=== PATIENT | female | born 1970 | race Caucasian/White ===

== ENCOUNTER 2017-09-20 13:43 | Outpatient (CLI) | payer BC ==
--- NOTE | 2017-09-20 15:48 | MRI ---
MRI LUMBAR SPINE 09/20/17 HISTORY: Bilateral leg pain for months. Multiplanar and multisequence noncontrast enhanced MRI images of the lumbar spine obtained. RADIOGRAPHIC FINDINGS: For the purposes of this dictation, the last freely mobile vertebral body will be considered to be th e L5 vertebral body. All other vertebral bodies are numbered according to this. The abdominal aorta is unremarkable. No evidence of periaortic lymphadenopathy seen. For the purposes of this dictation, the last freely mobile vertebral body will be considered to be th e L5 vertebral body. T12-L1, L1-2: Unremarkable. L2-3: There is some mild disc desiccation. No significant degree of central stenosis seen. Minimal bi lateral facet hypertrophy is seen. L3-4: There is mild facet hypertrophy. No significant degree of central or neural foraminal narrowing is seen. L4-5: There is moderate bilateral facet and ligamentum flavum hypertrophy. This results in mild but n ot significant central and neural foraminal narrowing. L5-S1: Mild facet hypertrophy is seen. Bilateral L4-5 and L5-S1 facet hypertrophy. IMPRESSION: Bilateral L4-5 and L5-S1 facet hypertrophy. No other significant abnormality seen. POS: OFF
== END 2017-09-20 13:44 | disposition home or self-care (01) ==
LOC: SCSMRI 13:43
PROVIDERS: ATTEND Internal Medicine Rheumatology
DX: M43.16 Spondylolisthesis, lumbar region (principal)
CPT/HCPCS: 72148

== ENCOUNTER 2017-11-02 10:50 | Outpatient (CLI) | payer BC | END 2017-11-02 10:51 | disposition home or self-care (01) | LOC: BICMAMMO 10:50 | PROVIDERS: ATTEND Obstetrics & Gynecology | DX: Z12.31 Encounter for screening mammogram for malignant neoplasm of breast (principal) | CPT/HCPCS: 77063; 77067 ==

== ENCOUNTER 2017-12-20 14:05 | Outpatient (CLI) | payer OTHER | END 2017-12-20 14:06 | disposition home or self-care (01) | LOC: DTY/OP 14:05 | PROVIDERS: ATTEND Specialist | DX: Z01.818 Encounter for other preprocedural examination (principal); E66.01 Morbid (severe) obesity due to excess calories | CPT/HCPCS: 97802 ==

== ENCOUNTER 2018-01-27 12:54 | Outpatient (CLI) | payer BC ==
--- NOTE | 2018-01-27 14:08 | MRI ---
CERVICAL SPINE MRI NONCONTRAST: History Cervical spine stenosis with neck and bilateral upper extremity pain. FINDINGS: Straightening of normal cervical curvature is present. There is no compression deformity or signific ant subluxation. No evidence of acute marrow edema. Cervical spinal cord demonstrates appropriate c aliber and signal without evidence of intrinsic expansile process. No obvious focal cord signal abno rmality identified, although there is limitation due to patient motion. There is no C1-2 level central canal stenosis. C2-3: There is disk-osteophyte effacing the inferior thecal sac with mild narrowing of the central c anal. No high-grade foraminal stenosis. C3-4: No high-grade central canal or neural foraminal stenosis. C4-5: Disk-osteophyte ridge is present with mild left and moderate right neural foraminal narrowing. There is an inferior C4 end plate Schmorl's node. C5-6: Slight right asymmetric disk osteophyte without high-grade central or foraminal stenosis. C6-7: No high-grade central canal or neural foraminal stenosis. C7-T1: No high-grade central canal or neural foraminal stenosis. IMPRESSION: Multilevel degenerative change of the cervical spine as outlined above. This does result in a modera te degree of right foraminal stenosis at the C4-5 level with resultant crowding of the right C5 nerve root. POS: KHUSHBU
== END 2018-01-27 12:55 | disposition home or self-care (01) ==
LOC: TBSIIMAG 12:54
PROVIDERS: ATTEND Anesthesiology Pain Medicine
DX: M48.02 Spinal stenosis, cervical region (principal); M47.892 Other spondylosis, cervical region
CPT/HCPCS: 72141

== ENCOUNTER 2018-02-08 12:00 | Inpatient (IN) | payer BC ==
[2018-04-06 10:48] VITALS: BMI 46.7
[2018-04-11] MEDS ORDERED: Bupivacaine/Epinephrine 0.25% 30 ML VIAL ONE ×2 (06:29→07:27)
[2018-04-11] MEDS ORDERED: Ketorolac Tromethamine 30 MG/ML VIAL ONE (06:49)
[2018-04-11] MEDS ORDERED: Sodium Chloride 0.9% 100 ML ONE (06:49)
[2018-04-11] MEDS ORDERED: Scopolamine 1.5 mg/72 hour Patch ONE (06:49)
[2018-04-11] MEDS ORDERED: Heparin 5,000 UNITS/ML VIAL ONE (06:49)
[2018-04-11] MEDS ORDERED: cefOXitin 2 GM VIAL ONE (06:49)
[2018-04-11 06:50] LABS: Anion Gap 14 mmol/L (10-20); BUN (Urea Nitrogen) 21 mg/dL (7.0-18.7); Calc. Creatinine Clearance 162 mL/min (70-130); Calcium 10.9 mg/dL (7.8-10.44); Carbon Dioxide 34 mmol/L (22-29); Chloride 96 mmol/L (98-107); Estimated GFR-MDRD 74; Glucose 114 mg/dL (70-105); Potassium 3.1 mmol/L (3.5-5.1); Sodium 141 mmol/L (136-145)
[2018-04-11] MEDS ORDERED: Fentanyl 250 MCG/5 ML VIAL ONE (07:11)
[2018-04-11] MEDS ORDERED: Midazolam HCl 2 mg/2 ml Vial ONE (07:23)
[2018-04-11] MEDS ORDERED: Ondansetron HCl/PF 4 MG/2 ML Vial ONE ×2 (07:32→12:56)
[2018-04-11] MEDS ORDERED: Succinylcholine Chloride 20 MG/ML 10 ml SYRINGE FS ONE ×2 (07:32→12:56)
[2018-04-11] MEDS ORDERED: Promethazine HCl 25 MG/ML VIAL SLOW IVP PRN (09:16)
[2018-04-11] MEDS ORDERED: Promethazine HCl 25 MG/ML VIAL IM PRN ×2 (09:16→10:47)
[2018-04-11] MEDS ORDERED: Ondansetron HCl/PF 4 MG/2 ML Vial IVP PRN ×2 (09:16→10:47)
[2018-04-11] MEDS ORDERED: Morphine Sulfate 2 MG/ML SYRINGE SLOW IVP PRN (09:16)
[2018-04-11] MEDS ORDERED: SUGAMMADEX SODIUM 200 MG/2 ML VIAL ONE (09:31)
[2018-04-11] MEDS ORDERED: SUGAMMADEX SODIUM 500 MG/5 ML VIAL ONE (09:31)
[2018-04-11] MEDS ORDERED: Fentanyl 100 MCG/2 ML VIAL ONE ×3 (10:00→10:49)
--- NOTE | 2018-04-11 10:39 | OP ---
DATE OF PROCEDURE: 04/11/2018 PREOPERATIVE DIAGNOSIS: Morbid obesity. POSTOPERATIVE DIAGNOSIS: Morbid obesity. OPERATION PERFORMED: Laparoscopic vertical sleeve gastrectomy using ViSiGi device. SURGEON: Sumit Boothe M.D. ANESTHESIA: General endotracheal per Georgia Stewart CRNA. INDICATIONS: The patient is a 47-year-old morbidly obese white female. She presents for a sleeve ga strectomy having completed preoperative education and evaluation. DESCRIPTION OF OPERATION: Informed consent was obtained. The patient was taken to the operating pj m where general endotracheal anesthesia obtained with the patient in supine position. Abdomen was pr epped with ChloraPrep and draped in sterile fashion. Local anesthetic was infiltrated and 5 mm supra umbilical incision was created through which Veress needle was passed to the peritoneal cavity and pn eumoperitoneum established using carbon dioxide up to a pressure of 15 mmHg. A 5 mm trocar port was passed through this same incision. Laparoscopic camera was passed through this port. Under direct v ision, 4 additional ports were placed including bilateral 5 mm subcostal ports, a 12 mm right paramed supa port and a 15 mm left paramedian port. A 5 mm epigastric incision was created through which Eva ansen retractor was passed into the abdominal cavity and used to retract the left lobe of the liver. The patient was placed into reverse Trendelenburg position. The ViSiGi device was advanced within the stomach and used to decompress this. The pylorus was ident ified and beginning 4 cm proximal to the pylorus, the omentum and vascular tissue along the greater c urvature was divided using the LigaSure in an ascending fashion up to the angle of His. All posterio r adhesions were mobilized. The short gastric vessels were carefully divided and then hemostasis was maintained using the LigaSure. Once this was completely mobilized, the ViSiGi was carefully positio surjit at the level of the pylorus and placed to suction, which was clearly defining the lesser curvatur e of the stomach. The gastrectomy was then performed using a series of fires of the [place] stapler using a green load followed by a gold load and a series of blue loads until completion of the gastrectomy. The ViSiGi a long the lesser curvature was used as a size 36 bougie to guide in the gastric division. Care was ta tejas to avoid narrowing the incisura or the gastroesophageal junction. The integrity of the staple li ne was then assessed by insufflating gas through the ViSiGi while irrigating along the staple line. There was no evidence of an air leak. There was no evidence of bleeding along the staple line. The resected stomach was then removed through the 15 mm port and the fascia was closed with 0 Vicryl sutu re using a GraNee needle. I then closed the 12 mm port also using the GraNee needle and 0 Vicryl sut ure. The Nathansen retractor was removed. All ports and instruments were removed under direct visio n. All irrigant was aspirated. Pneumoperitoneum was carefully evacuated. Quarter percent Marcaine with epinephrine was infiltrated into each port site. Skin edges approximated with 4-0 Monocryl subc uticular suture. Dermabond was placed externally. There were no complications. The patient tolerat ed the procedure well and was taken to recovery room in stable condition. FINDINGS: She had some omental adhesions to the anterior abdominal wall in the left upper abdomen. Otherwise, her anatomy appeared to be within normal limits. She had no evidence of fatty liver. The re was essentially no blood loss during the operation. There were no complications. Procedure was u neventful. She tolerated well and was taken to recovery room in stable condition.
[2018-04-11] MEDS ORDERED: hydrALAZINE 20 MG/ML VIAL SLOW IVP PRN (10:47)
[2018-04-11] MEDS ORDERED: Hydrocodone-Acetamin 15 ML UDCUP PO PRN (10:47)
[2018-04-11] MEDS ORDERED: Dextrose 5% in Water 1,000 ML IV PRN (10:47)
[2018-04-11] MEDS ORDERED: diphenhydrAMINE 50 MG/ML VIAL IVP PRN (10:47)
[2018-04-11] MEDS ORDERED: Dextrose 50% Abboject 50 ML SYRINGE SLOW IVP PRN (10:47)
[2018-04-11] MEDS: D5 1/2 NS w/20 mEq KCL 1,000 ML IV SCH ×2 (11:53→20:20)
[2018-04-11] MEDS: Acetaminophen 1,000 MG in Premix Bag 1 BAG IVPB SCH ×3 (11:54→23:38)
[2018-04-11] MEDS: Ketorolac Tromethamine 30 MG/ML VIAL IVP SCH ×3 (11:55→23:38)
[2018-04-11] MEDS ORDERED: Dexamethasone 20 MG/5 ML VIAL ONE (12:56)
[2018-04-11] MEDS ORDERED: Glycopyrrolate 0.2 MG/ML 5 ML SYRINGE ONE (12:56)
[2018-04-11] MEDS ORDERED: PROPOFOL 200 MG/20 ML VIAL ONE (12:56)
[2018-04-11] MEDS ORDERED: Lidocaine 1% PF 5 ML VIAL ONE (12:56)
[2018-04-11] MEDS ORDERED: Enoxaparin Sodium 40 MG/0.4 ML SYRINGE SC SCH (21:00)
[2018-04-12] MEDS: D5 1/2 NS w/20 mEq KCL 1,000 ML IV SCH ×2 (04:42→08:44)
[2018-04-12 05:51] LABS: #Lymphocytes 2.4 thou/uL (1.20-3.40); #Neutrophils 9.6 thou/uL (1.40-6.50); %Basophils 0.1 % (0.0-1.0); %Eosinophils 0.3 % (0.0-10.0); %Lymphocytes 18.2 % (21.0-51.0); %Monocytes 7.4 % (0.0-10.0); %Neutrophils 74.1 % (42.0-75.0); Hemoglobin 12.3 g/dL (12.0-16.0); Mean Corpuscular HGB CONC 34.5 g/dL (32.0-36.0); Mean Corpuscular Hemoglobin 30.5 pg (27.0-31.0); Mean Corpuscular Volume 88.4 fL (78.0-98.0); Mean Platelet Volume 8.3 fL (7.4-10.4); Platelet Count 236 thou/uL (130-400); RBC Distribution Width 12.9 % (11.5-14.5); Red Blood Cell (RBC) Count 4.04 mill/uL (4.20-5.40); White Blood Cell (WBC) Count 12.9 thou/uL (4.8-10.8)
[2018-04-12] MEDS: Acetaminophen 1,000 MG in Premix Bag 1 BAG IVPB SCH (05:59)
[2018-04-12] MEDS: Ketorolac Tromethamine 30 MG/ML VIAL IVP SCH ×2 (05:59→12:30)
[2018-04-12 06:41] LABS: Anion Gap 9 mmol/L (10-20); BUN (Urea Nitrogen) 11 mg/dL (7.0-18.7); Calc. Creatinine Clearance 182 mL/min (70-130); Calcium 8.8 mg/dL (7.8-10.44); Carbon Dioxide 31 mmol/L (22-29); Chloride 98 mmol/L (98-107); Estimated GFR-MDRD 85; Glucose 119 mg/dL (70-105); Potassium 3.2 mmol/L (3.5-5.1); Sodium 135 mmol/L (136-145)
[2018-04-12] MEDS ORDERED: Pantoprazole 40 MG VIAL IVP SCH (09:00)
[2018-04-12 11:31] VITALS: BP 129/83; TEMP 98.6
== END 2018-04-12 14:24 | disposition home or self-care (01) | DRG 621 ==
LOC: SURG A 04-11 06:07 → SURG B 04-11 11:26
PROVIDERS: ADMIT Specialist; ATTEND Specialist
PROC: 0DB64Z3 Excision of Stomach, Percutaneous Endoscopic Approach, Vertical (ICD-10-PCS; principal; 2018-04-11)
DX: E66.01 Morbid (severe) obesity due to excess calories (principal); G47.33 Obstructive sleep apnea (adult) (pediatric); M79.7 Fibromyalgia; M54.5 Low back pain; M54.2 Cervicalgia; F41.9 Anxiety disorder, unspecified; I10 Essential (primary) hypertension; E78.5 Hyperlipidemia, unspecified; Z68.42 Body mass index [BMI] 45.0-49.9, adult; Z87.39 Personal history of other diseases of the musculoskeletal system and connective tissue; Z87.42 Personal history of other diseases of the female genital tract; Z87.898 Personal history of other specified conditions; Z82.49 Family history of ischemic heart disease and other diseases of the circulatory system; Z82.3 Family history of stroke; Z98.51 Tubal ligation status; Z79.899 Other long term (current) drug therapy
CPT/HCPCS: 36415; 80048; 85025; 88307; 88312; C9113; J0131; J0694; J1644; J1650; J1885; J2250; J2405; J3010; J7050

== ENCOUNTER 2018-04-06 10:15 | Outpatient (CLI) | payer BC | END 2018-04-06 10:16 | disposition home or self-care (01) | LOC: LABBT 10:15 | PROVIDERS: ATTEND Specialist | DX: Z01.818 Encounter for other preprocedural examination (principal); E66.01 Morbid (severe) obesity due to excess calories | CPT/HCPCS: 93005; 93010 ==

== ENCOUNTER 2018-05-10 19:45 | Emergency (ER) | payer BC ==
[2018-05-10 20:27] LABS: #Basophils 0.1 thou/uL (0.0-0.2); #Eosinphils 0.3 thou/uL (0.0-0.7); #Lymphocytes 2.5 thou/uL (1.20-3.40); #Monocytes 0.7 thou/uL (0.11-0.59); #Neutrophils 6.8 thou/uL (1.40-6.50); %Basophils 1.1 % (0.0-1.0); %Eosinophils 2.7 % (0.0-10.0); %Monocytes 6.7 % (0.0-10.0); %Neutrophils 65.5 % (42.0-75.0); Hemoglobin 14.3 g/dL (12.0-16.0); Mean Corpuscular HGB CONC 33.5 g/dL (32.0-36.0); Mean Corpuscular Hemoglobin 30.1 pg (27.0-31.0); Mean Corpuscular Volume 89.8 fL (78.0-98.0); Mean Platelet Volume 9.2 fL (7.4-10.4); Platelet Count 216 thou/uL (130-400); RBC Distribution Width 12.9 % (11.5-14.5); Red Blood Cell (RBC) Count 4.76 mill/uL (4.20-5.40); White Blood Cell (WBC) Count 10.4 thou/uL (4.8-10.8)
[2018-05-10 20:43] LABS: ALT (SGPT) 12 U/L (8-55); AST (SGOT) 15 U/L (5-34); Albumin 4.6 g/dL (3.5-5.0); Alkaline Phosphatase 84 U/L (40-150); Anion Gap 12 mmol/L (10-20); BUN (Urea Nitrogen) 16 mg/dL (7.0-18.7); Bilirubin, Total 0.4 mg/dL (0.2-1.2); Calc. Creatinine Clearance 0 mL/min (70-130); Carbon Dioxide 32 mmol/L (22-29); Chloride 100 mmol/L (98-107); Estimated GFR-MDRD 75; Globulin 2.9 g/dL (2.4-3.5); Glucose 88 mg/dL (70-105); Lipase 26 U/L (8-78); Potassium 3.6 mmol/L (3.5-5.1); Protein, Total 7.5 g/dL (6.0-8.3); Sodium 140 mmol/L (136-145)
== END 2018-05-10 22:48 | disposition left against medical advice (07) ==
LOC: ERS 19:45
DX: Z53.21 Procedure and treatment not carried out due to patient leaving prior to being seen by health care provider (principal)
CPT/HCPCS: 36415; 80053; 83690; 85025

== ENCOUNTER 2019-01-09 07:42 | Outpatient (CLI) | payer BC ==
--- NOTE | 2019-01-09 10:19 | MRI ---
MRI CERVICAL SPINE: 01/09/2019 HISTORY: Cervical spondylosis. Neck pain, radiating down right shoulder and right arm. COMPARISON: 01/27/2018 TECHNIQUE: Multiplanar, multisequence MR imaging of the cervical spine is provided without contrast. FINDINGS: The sagittal STIR imaging demonstrates mild edematous change involving the inferior endplate of the C 4 vertebral body, associated with a stable Schmorl's node. Benign hemangioma noted at T2. There is no anterolisthesis or retrolisthesis within the cervical spine. No prevertebral soft tissue abnormality. Craniocervical junction and atlantoaxial interspace appears within normal limits. C2-C3: No significant central canal or neural foraminal stenosis. C3-C4: No significant central canal or neural foraminal stenosis. C4-C5: Disk space narrowing and disk desiccation noted. Minimal disk bulge with no central canal st enosis. Bilateral facet and uncovertebral osteophyte formation, right greater than left. Moderate s table right neural foraminal stenosis. No significant left neural foraminal stenosis. C5-C6: Disk desiccation and minimal disk bulge with partial effacement of the ventral thecal sac. N o significant central canal stenosis or interval change. Mild bilateral uncovertebral osteophyte for mation, right greater than left. No significant neural foraminal stenosis. C6-C7: There is minimal disk bulge with no significant central canal or neural foraminal stenosis. C7-T1: No significant central canal or neural foraminal stenosis. No focal area of abnormal signal intensity is identified within the cervical cord. IMPRESSION: Degenerative change within the cervical spine, as detailed above. POS: KHUSHBU
== END 2019-01-09 07:43 | disposition home or self-care (01) ==
LOC: BICMRI 07:42
PROVIDERS: ATTEND Anesthesiology Pain Medicine
DX: M47.812 Spondylosis without myelopathy or radiculopathy, cervical region (principal)
CPT/HCPCS: 72141

== ENCOUNTER 2019-02-08 20:30 | Outpatient (CLI) | payer BC | END 2019-02-08 20:31 | disposition home or self-care (01) | LOC: SLEEPLAB 20:30 | PROVIDERS: ATTEND Internal Medicine Pulmonary Disease | DX: G47.33 Obstructive sleep apnea (adult) (pediatric) (principal); M79.7 Fibromyalgia; R06.83 Snoring; G47.00 Insomnia, unspecified; G47.10 Hypersomnia, unspecified; I10 Essential (primary) hypertension; G47.61 Periodic limb movement disorder; Z98.84 Bariatric surgery status | CPT/HCPCS: 95806 ==

== ENCOUNTER 2019-02-28 11:20 | Outpatient (CLI) | payer BC ==
--- NOTE | 2019-02-28 11:46 | MMO ---
Bilateral MAMMO Bilat Screen [facility]. CLINICAL HISTORY: Patient is 48 years old and is seen for screening. The patient has no family history of breast cancer. The patient has no personal history of cancer. VIEWS: The views performed were: bilateral craniocaudal with tomosynthesis and bilateral mediolateral oblique with tomosynthesis. FILMS COMPARED: The present examination has been compared to prior imaging studies performed at [facility] on 08/01/2013, 10/03/2014, 10/13/2015, 11/02/2016 and 11/02/2017. MAMMOGRAM FINDINGS: There are scattered fibroglandular densities. There are no suspicious masses, suspicious calcifications, or new areas of architectural distortion. IMPRESSION: THERE IS NO MAMMOGRAPHIC EVIDENCE OF MALIGNANCY. A ROUTINE FOLLOW-UP MAMMOGRAM IN 1 YEAR IS RECOMMENDED. THE RESULTS OF THIS EXAM WERE SENT TO THE PATIENT. ACR BI-RADS Category 1 - Negative MAMMOGRAPHY NOTE: 1. A negative mammogram report should not delay a biopsy if a dominant of clinically suspicious mass is present. 2. Approximately 10% to 15% of breast cancers are not detected by mammography. 3. Adenosis and dense breasts may obscure an underlying neoplasm.
== END 2019-02-28 11:21 | disposition home or self-care (01) ==
LOC: BICMAMMO 11:20
PROVIDERS: ATTEND Obstetrics & Gynecology
DX: Z12.31 Encounter for screening mammogram for malignant neoplasm of breast (principal)
CPT/HCPCS: 77063; 77067

== ENCOUNTER 2019-04-02 19:30 | Outpatient (CLI) | payer BC | END 2019-04-02 19:31 | disposition home or self-care (01) | LOC: SLEEPLAB 19:30 | PROVIDERS: ATTEND Internal Medicine Pulmonary Disease | DX: G47.33 Obstructive sleep apnea (adult) (pediatric) (principal); R06.83 Snoring; G47.10 Hypersomnia, unspecified; R63.4 Abnormal weight loss; E66.9 Obesity, unspecified; Z68.33 Body mass index [BMI] 33.0-33.9, adult | CPT/HCPCS: 95811 ==

== ENCOUNTER 2020-07-23 13:06 | Inpatient (IN) | payer BC, OTHER ==
[2020-07-23] MEDS ORDERED: Acetaminophen 500 MG TAB ONE (13:28)
[2020-07-23] MEDS ORDERED: diphenhydrAMINE 50 MG/ML VIAL ONE (13:53)
[2020-07-23] MEDS ORDERED: diphenhydrAMINE 25 MG CAP ONE (13:53)
[2020-07-23] MEDS ORDERED: Ketorolac Tromethamine 30 MG/ML VIAL ONE (13:53)
[2020-07-23] MEDS ORDERED: Metoclopramide 10 MG/10 ML UDCUP ONE (13:53)
[2020-07-23] MEDS ORDERED: Metoclopramide HCl 10 MG/2 ML VIAL ONE (13:53)
--- NOTE | 2020-07-23 13:57 | RAD ---
PORTABLE CHEST 1 VIEW: Date: 07/23/2020 Time: 1344 hours HISTORY: Fever, cough. FINDINGS/IMPRESSION: Comparison made with exam of 07/21/2020. The heart size is normal. There is suggestion of mild infiltrate in the left lung base/retrocardiac r egion. The possibility of pneumonia should be considered. POS: AH
[2020-07-23 14:13] LABS: Hemoglobin 13.6 g/dL (12.0-16.0); Mean Corpuscular HGB CONC 33.5 g/dL (32.0-36.0); Mean Corpuscular Hemoglobin 30.6 pg (27.0-31.0); Mean Corpuscular Volume 91.6 fL (78.0-98.0); Mean Platelet Volume 9.4 fL (7.4-10.4); Platelet Count 184 thou/uL (130-400); RBC Distribution Width 12.5 % (11.5-14.5); Red Blood Cell (RBC) Count 4.43 mill/uL (4.20-5.40); White Blood Cell (WBC) Count 9.5 thou/uL (4.8-10.8)
[2020-07-23 14:26] LABS: ALT (SGPT) 48 U/L (8-55); AST (SGOT) 66 U/L (5-34); Albumin 3.6 g/dL (3.5-5.0); Alkaline Phosphatase 101 U/L (40-110); Anion Gap 13 mmol/L (10-20); BUN (Urea Nitrogen) 15 mg/dL (9.8-20.1); Bilirubin, Total 0.2 mg/dL (0.2-1.2); Calc. Creatinine Clearance 0 mL/min (70-130); Calcium 8.8 mg/dL (7.8-10.44); Carbon Dioxide 26 mmol/L (22-29); Chloride 103 mmol/L (98-107); Estimated GFR-MDRD 79; Globulin 2.9 g/dL (2.4-3.5); Glucose 100 mg/dL (70-105); Protein, Total 6.5 g/dL (6.0-8.3); Sodium 138 mmol/L (136-145)
[2020-07-23 14:27] LABS: Bilirubin Negative (Negative); Blood, Urine Trace (Negative); Clarity Turbid (Clear); Glucose, Urine (Dipstick) Normal (Negative); Ketone, Urine Trace mg/dL (Negative); Leukocyte 250 Leu/uL (Negative); Mucous/LPF Rare LPF (<2+); Nitrite Negative (Negative); Protein, Urine (Dipstick) 300 mg/dL (Neg-Trace); Specific Gravity, Urine 1.035 (1.002-1.036); Urobilinogen Normal mg/dL (Less than 2)
--- NOTE | 2020-07-23 14:29 | CT ---
CT BRAIN WITHOUT CONTRAST: Date: 07/23/2020 HISTORY: Headache. Trauma to head. Nausea. COMPARISON: None. FINDINGS: No evidence of acute infarct, hemorrhage, midline shift, or abnormal extra-axial fluid collections ar e seen. The bony calvarium is intact. The visualized paranasal sinuses are well aerated. IMPRESSION: No CT evidence of acute intracranial process. POS: AH
[2020-07-23 14:32] LABS: Bacteria/HPF 1+ HPF (None Seen); Pregnancy Test - Urine (BHCG) Negative (Negative); Pregu Control Background? CLEAR/WHITE (CLR/WHITE); Pregu Control Bar Appear? YES (CONTROL BAR); Specific Gravity 1.035 (1.002-1.036)
[2020-07-23 14:36] LABS: Band 16 % (5-11); Lymphocytes 16 % (21-51); MDiff Complete? YES; Monocytes 4 % (0-10); Neutrophil 61 % (42-75); Platelet Morphology Comment Appears Adequate; RBC Morphology Normal; Reactive Lymphocytes 2 % (0-10)
[2020-07-23] MEDS ORDERED: cefTRIAXone\\ROCEPHIN 2 GM VIAL ONE (15:01)
[2020-07-23] MEDS ORDERED: Ondansetron PF 4 MG/2 ML Vial IVP PRN (15:27)
[2020-07-23] MEDS ORDERED: Azithromycin 500 MG VIAL ONE (15:41)
[2020-07-23 16:30] LABS: SARS-CoV-2 NAA Rapid Test Not Detected (NotDetected)
[2020-07-23] MEDS: Sodium Chloride 0.9% 1,000 ML IV SCH (18:25)
[2020-07-23] MEDS ORDERED: Ondansetron PF 4 MG/2 ML Vial ONE (22:04)
[2020-07-23] MEDS ORDERED: Acetaminophen 325 MG TAB ONE (22:04)
[2020-07-23 23:08] VITALS: BMI 30.7
[2020-07-23] MEDS: Azithromycin 500 MG in Sodium Chloride 0.9% 250 ML 250 ML IVPB SCH (23:11)
[2020-07-23] MEDS: cefTRIAXone\\ROCEPHIN 1 GM in Sodium Chloride 0.9% 100 ML IVPB SCH (23:11)
--- NOTE | 2020-07-23 23:13 | HP ---
CHIEF COMPLAINT: Shortness of breath. HISTORY OF PRESENT ILLNESS: The patient is a 49-year-old female with past medical history of hypertension who presented to the ER with complaints of fever, cough, and body aches for the past two days. The patient stated that her symptoms started Tuesday night with fevers and chills and progressed to nonproductive cough and generalized body pains over the next couple of days. She felt dizzy on Tuesday while taking a shower and briefly lost consciousness. The patient denies any chest pain, palpitations, nausea, vomiting, or change in her bowel habits. She was tested for COVID-19 a couple of days ago and her test was reportedly negative. In the ER, the patient was found to be febrile, and her chest x-ray revealed left lung base opacities. Her influenza screen has been negative and a repeat COVID-19 test was ordered. REVIEW OF SYSTEMS: Negative, except as noted in HPI. PAST MEDICAL HISTORY: Hypertension. PAST SURGICAL HISTORY: Gastric sleeve surgery. SOCIAL HISTORY: The patient denies alcohol use, smoking, or illicit drug use. ALLERGIES: NO KNOWN DRUG ALLERGIES. FAMILY HISTORY: Noncontributory. PHYSICAL EXAMINATION: GENERAL: The patient is alert and oriented x3. HEENT: Head is normocephalic and atraumatic. Extraocular muscles are intact. NECK: Supple. CHEST: Auscultation shows diminished sounds bilaterally. CARDIOVASCULAR: Showing normal S1 and S2. Regular rate and rhythm. No murmurs, rubs, or gallops. ABDOMEN: Soft, nontender, and nondistended. NEUROLOGIC: Nonfocal. LABORATORY DATA: CT scan of the brain without contrast did not show any abnormalities. Chest x-ray revealed left lower lobe infiltrates. Her laboratory studies did not reveal any leukocytosis and her BMP was unremarkable. The patient's urinalysis showed presence of leukocyte esterase and wbc's. The sample was contaminated with as evident by elevated squamous epithelial cell count. ASSESSMENT: 1. Sepsis. 2. Left lower lobe pneumonia. 3. Hypertension. 4. Rule out COVID-19. PLAN: The patient will be admitted to the hospital. Sepsis criteria met with source of infection, tachypnea, and fever. We will manage her with IV ceftriaxone and azithromycin. We will follow the results of her repeat COVID-19 test. The patient is not hypoxic at this time. Monitor her response over the next 24 hours. We will gently hydrate the patient given her dizziness. Tylenol as needed for fever and Lovenox for DVT prophylaxis. Job ID: [id number]
[2020-07-24] MEDS: Sodium Chloride 0.9% 1,000 ML IV SCH ×3 (00:15→20:15)
[2020-07-24 07:11] LABS: Anion Gap 12 mmol/L (10-20); BUN (Urea Nitrogen) 15 mg/dL (9.8-20.1); Calc. Creatinine Clearance 112 mL/min (70-130); Calcium 8.4 mg/dL (7.8-10.44); Carbon Dioxide 25 mmol/L (22-29); Chloride 104 mmol/L (98-107); Estimated GFR-MDRD 80; Glucose 125 mg/dL (70-105); Potassium 3.7 mmol/L (3.5-5.1); Sodium 137 mmol/L (136-145)
[2020-07-24 07:16] LABS: #Lymphocytes 1.1 thou/uL (1.20-3.40); #Monocytes 0.7 thou/uL (0.11-0.59); #Neutrophils 6.1 thou/uL (1.40-6.50); %Basophils 0.6 % (0.0-1.0); %Eosinophils 0.4 % (0.0-10.0); %Lymphocytes 14.3 % (21.0-51.0); %Monocytes 8.9 % (0.0-10.0); %Neutrophils 75.9 % (42.0-75.0); Hemoglobin 12.3 g/dL (12.0-16.0); Mean Corpuscular HGB CONC 33.2 g/dL (32.0-36.0); Mean Corpuscular Hemoglobin 30.7 pg (27.0-31.0); Mean Corpuscular Volume 92.6 fL (78.0-98.0); Mean Platelet Volume 9.6 fL (7.4-10.4); Platelet Count 170 thou/uL (130-400); RBC Distribution Width 12.5 % (11.5-14.5); Red Blood Cell (RBC) Count 3.99 mill/uL (4.20-5.40)
--- NOTE | 2020-07-24 08:14 | PDOC.HOSPP ---
- Subjective Encounter Date: 07/24/20 Encounter Time: 08:11 Subjective: Patient seen and examined. No new complaints. Patient spike Temp. 103.1F last night, blood/urine cultures taken per protocol. Given tylenol, T100.4F. Patient reports feeling better since she came in. She has intermittent non productive cough. Denies SOB or wheezing. Reports right, posterior headache, had over past week. Denies any alba stiffness, vision changes, focal motor deficits. Denies chest pain, heart palpitations. Says she is tolerating diet well. Voiding and stooling per usual. - Objective Vital Signs & Weight: Vital Signs (12 hours) Temp Pulse Resp BP BP Pulse Ox 07/24/20 07:12 100.7 F H 69 20 109/69 94 L 07/24/20 05:45 103.1 F H 07/24/20 04:00 100 F H 82 18 121/69 95 07/23/20 23:58 98.2 F 70 18 110/70 96 07/23/20 22:30 101.1 F H 84 18 115/71 96 Weight Weight 178 lb 9.6 oz I&O: 07/23/20 07/24/20 07/25/20 06:59 06:59 06:59 Intake Total 1700 Balance 1700 Result Diagrams: 07/24/20 Unknown 07/24/20 Unknown Hospitalist ROS - Review of Systems Constitutional: denies: malaise Respiratory: reports: cough, dry (intermittent). denies: shortness of breath, hemoptysis, SOB with excertion Cardiovascular: denies: chest pain, palpitations, edema Gastrointestinal: denies: nausea, vomiting, abdominal pain, diarrhea Musculoskeletal: denies: neck pain Neurological: denies: weakness, incoordination, change in speech All other systems reviewed; all pertinent +/- noted in HPI/Subj - Medication Medications: Active Medications Generic Name Dose Route Start Last Admin Trade Name Freq PRN Reason Stop Dose Admin Ceftriaxone Sodium 1 gm/ 100 mls @ 200 mls/hr 07/23/20 15:00 07/23/20 23:11 Sodium Chloride IVPB Not Given Q24HR VA Azithromycin 500 mg/ Sodium 250 mls @ 250 mls/hr 07/23/20 16:00 07/23/20 23:11 Chloride IVPB Not Given Q24HR VA Sodium Chloride 1,000 mls @ 75 mls/hr 07/23/20 15:30 07/24/20 00:15 Normal Saline 0.9% IV 1,000 mls .[id number] VA Administration - Exam General Appearance: NAD, awake alert. negative: ill appearing Eye: anicteric sclera ENT: normocephalic atraumatic Neck: supple, symmetric Heart: RRR, no murmur, no gallops, no rubs, normal peripheral pulses Respiratory: CTAB, no wheezes, no rales, no ronchi, no tachypnea Respiratory - other findings: slightly diminished to lower lobes Gastrointestinal: soft, non-tender, normal bowel sounds, no guarding, no rigidity Neurological: cranial nerve grossly intact, no focal deficits Neurological - other findings: Brudzinski sign negative Psychiatric: normal affect, A&O x 3 Hosp A/P (1) Sepsis Code(s): A41.9 - SEPSIS, UNSPECIFIED ORGANISM Status: Acute (2) Left lower lobe pneumonia Code(s): J18.9 - PNEUMONIA, UNSPECIFIED ORGANISM Status: Acute (3) HTN (hypertension) Code(s): I10 - ESSENTIAL (PRIMARY) HYPERTENSION Status: Chronic - Plan T 100.4, Sp02 94% RA #Sepsis Increase maintenance IVF rate Continue antibiotics Blood and urine CX pending WBC down 9.5 to 8.0 #LLL Pneumonia Continue rocephin and azithromycin IVPB #HTN Will restart home meds when reconciled by nursing. Discussed case with Dr. Jean.
[2020-07-24] MEDS ORDERED: Prevnar 13-Val Conj/PF 0.5 ML SYRINGE IM ONE (09:00)
[2020-07-24] MEDS ORDERED: Ketorolac Tromethamine 30 MG/ML VIAL IVP SCH (12:15)
[2020-07-24] MEDS: Enoxaparin Sodium 40 MG/0.4 ML SYRINGE SC SCH (13:23)
[2020-07-24] MEDS: Acetaminophen 325 MG TAB PO PRN (13:34)
[2020-07-24] MEDS: cefTRIAXone\\ROCEPHIN 1 GM in Sodium Chloride 0.9% 100 ML IVPB SCH (15:09)
[2020-07-24] MEDS: Calcium Carbonate 500 MG ChewTAB PO PRN ×2 (16:45→19:45)
[2020-07-24] MEDS: Azithromycin 500 MG in Sodium Chloride 0.9% 250 ML 250 ML IVPB SCH (16:45)
[2020-07-24] MEDS: Escitalopram Oxalate 10 mg Tablet PO SCH (20:15)
[2020-07-24] MEDS: Calcium Carbonate 600 MG TAB PO SCH (20:15)
[2020-07-25] MEDS ORDERED: Ketorolac Tromethamine 30 MG/ML VIAL IVP SCH ×2 (01:45→03:00)
[2020-07-25] MEDS: Acetaminophen 325 MG TAB PO PRN ×2 (04:08→14:44)
[2020-07-25] MEDS: Sodium Chloride 0.9% 1,000 ML IV SCH (04:08)
[2020-07-25] MEDS: Multivit, Therapeutic 1 TAB PO SCH (08:09)
[2020-07-25] MEDS: traMADol HCl 50 MG TAB PO SCH (08:09)
[2020-07-25] MEDS: Calcium Carbonate 600 MG TAB PO SCH ×2 (08:09→21:08)
[2020-07-25] MEDS: Lisinopril 10 MG TAB PO SCH (08:09)
[2020-07-25] MEDS: Acetaminophen 325 MG TAB PO SCH (08:10)
[2020-07-25] MEDS: Enoxaparin Sodium 40 MG/0.4 ML SYRINGE SC SCH (08:10)
[2020-07-25] MEDS ORDERED: Lisinopril 10 MG TAB PO SCH (09:00)
--- NOTE | 2020-07-25 09:26 | PDOC.HOSPP ---
- Subjective Encounter Date: 07/25/20 Encounter Time: 09:24 Subjective: Patient seen and examined. No new complaints. No overnight events. The patient report T 100.3F early this morning, felt like she broke a fever. Reports intermittent, dry cough. Denies any wheezing, SOB, chest pain, heart palp itations and light headedness. Reported some indigestion after eating meat yesterday, which sometimes happens at home. Has no other complaints. - Objective Vital Signs & Weight: Vital Signs (12 hours) Temp Pulse Resp BP BP Pulse Ox 07/25/20 08:09 122/75 07/25/20 07:22 98.0 F 54 L 20 122/75 95 07/25/20 04:01 100.3 F H 64 18 125/75 95 07/25/20 00:14 99.6 F 77 18 149/88 H 92 L Weight Admit Weight 178 lb 9.6 oz Weight 178 lb 9.6 oz I&O: 07/24/20 07/25/20 07/26/20 06:59 06:59 06:59 Intake Total 1700 Balance 1700 Result Diagrams: 07/24/20 Unknown 07/24/20 Unknown Hospitalist ROS - Review of Systems Respiratory: reports: cough, dry. denies: shortness of breath, hemoptysis, pleuritic pain Cardiovascular: denies: chest pain, palpitations, edema Gastrointestinal: denies: nausea, vomiting, abdominal pain, diarrhea Genitourinary: denies: dysuria, hematuria Skin: denies: rash Neurological: denies: weakness, incoordination, change in speech - Medication Medications: Active Medications Generic Name Dose Route Start Last Admin Trade Name Kennq PRN Reason Stop Dose Admin Acetaminophen 650 mg 07/23/20 15:27 07/25/20 04:08 Acetaminophen 325 Mg Tab PO 650 mg Q4H PRN Administration Headache/Fever/Mild Pain (1-3) Acetaminophen 325 mg 07/25/20 09:00 07/25/20 08:10 Acetaminophen 325 Mg Tab PO 325 mg QAM VA Administration Calcium Carbonate 600 mg 07/24/20 21:00 07/25/20 08:09 Calcium Carbonate 600 Mg Tab PO 600 mg BID VA Administration Calcium Carbonate 1,000 mg 07/24/20 16:23 07/24/20 19:45 Calcium Carbonate 500 Mg Chewtab PO 1,000 mg Q4H PRN Administration Heartburn or Indigestion Enoxaparin Sodium 40 mg 07/24/20 09:00 07/25/20 08:10 Enoxaparin Sodium 40 Mg/0.4 Ml Syringe SC Not Given 0900 VA Escitalopram Oxalate 10 mg 07/24/20 21:00 07/24/20 20:15 Escitalopram Oxalate 10 Mg Tablet PO 10 mg HS VA Administration Ceftriaxone Sodium 1 gm/ 100 mls @ 200 mls/hr 07/23/20 15:00 07/24/20 15:09 Sodium Chloride IVPB 100 mls Q24HR VA Administration Azithromycin 500 mg/ Sodium 250 mls @ 250 mls/hr 07/23/20 16:00 07/24/20 16:45 Chloride IVPB 250 mls Q24HR VA Administration Sodium Chloride 1,000 mls @ 100 mls/hr 07/24/20 08:11 07/25/20 04:08 Normal Saline 0.9% IV 1,000 mls .Q10H VA Administration Lisinopril 10 mg 07/25/20 09:00 07/25/20 08:09 Lisinopril 10 Mg Tab PO 10 mg DAILY VA Administration Multivitamins 1 tab 07/25/20 09:00 07/25/20 08:09 Multivit, Therapeutic 1 Tab PO 1 tab DAILY VA Administration Tramadol HCl 50 mg 07/25/20 09:00 07/25/20 08:09 Tramadol Hcl 50 Mg Tab PO 50 mg QAM VA Administration - Exam General Appearance: NAD, awake alert Neck: supple, symmetric Heart: RRR, no murmur, no gallops, no rubs, normal peripheral pulses Respiratory: CTAB, no wheezes, no rales, no ronchi, normal chest expansion, no tachypnea Gastrointestinal: soft, non-tender, normal bowel sounds, no bruit, no guarding, no rigidity Skin: no rashes Neurological: no focal deficits Psychiatric: normal affect, A&O x 3 Hosp A/P (1) Sepsis Code(s): A41.9 - SEPSIS, UNSPECIFIED ORGANISM Status: Acute (2) Left lower lobe pneumonia Code(s): J18.9 - PNEUMONIA, UNSPECIFIED ORGANISM Status: Acute (3) HTN (hypertension) Code(s): I10 - ESSENTIAL (PRIMARY) HYPERTENSION Status: Chronic - Plan #Sepsis Stop fluids, tolerating oral intake. Get cbc, bmp this morning. #LLL Pneumonia IV Rocephin and azithromycin #HTN BP stable. #Syncopal episode Will get echocardiogram Will check orthostatic VS. Discussed case with Dr. Jean.
[2020-07-25 09:43] LABS: #Eosinphils 0.1 thou/uL (0.0-0.7); #Lymphocytes 1.3 thou/uL (1.20-3.40); #Monocytes 0.4 thou/uL (0.11-0.59); #Neutrophils 3.6 thou/uL (1.40-6.50); %Basophils 0.8 % (0.0-1.0); %Eosinophils 2.1 % (0.0-10.0); %Lymphocytes 24.5 % (21.0-51.0); %Monocytes 7.4 % (0.0-10.0); %Neutrophils 65.1 % (42.0-75.0); Hemoglobin 12.1 g/dL (12.0-16.0); Mean Corpuscular HGB CONC 34.3 g/dL (32.0-36.0); Mean Corpuscular Hemoglobin 31.5 pg (27.0-31.0); Mean Corpuscular Volume 91.9 fL (78.0-98.0); Mean Platelet Volume 8.7 fL (7.4-10.4); Platelet Count 191 thou/uL (130-400); RBC Distribution Width 12.7 % (11.5-14.5); Red Blood Cell (RBC) Count 3.84 mill/uL (4.20-5.40); White Blood Cell (WBC) Count 5.5 thou/uL (4.8-10.8)
[2020-07-25 10:04] LABS: Anion Gap 10 mmol/L (10-20); BUN (Urea Nitrogen) 8 mg/dL (9.8-20.1); Calc. Creatinine Clearance 131 mL/min (70-130); Calcium 8.9 mg/dL (7.8-10.44); Carbon Dioxide 29 mmol/L (22-29); Chloride 107 mmol/L (98-107); Estimated GFR-MDRD Greater than 90; Glucose 125 mg/dL (70-105); Potassium 3.6 mmol/L (3.5-5.1); Sodium 142 mmol/L (136-145)
[2020-07-25] MEDS: cefTRIAXone\\ROCEPHIN 1 GM in Sodium Chloride 0.9% 100 ML IVPB SCH (14:38)
[2020-07-25] MEDS: Azithromycin 500 MG in Sodium Chloride 0.9% 250 ML 250 ML IVPB SCH (15:56)
[2020-07-25] MEDS: Escitalopram Oxalate 10 mg Tablet PO SCH (21:08)
[2020-07-26 06:10] LABS: #Basophils 0.1 thou/uL (0.0-0.2); #Eosinphils 0.2 thou/uL (0.0-0.7); #Lymphocytes 1.7 thou/uL (1.20-3.40); #Monocytes 0.6 thou/uL (0.11-0.59); #Neutrophils 3.6 thou/uL (1.40-6.50); %Basophils 0.9 % (0.0-1.0); %Eosinophils 3.3 % (0.0-10.0); %Monocytes 9.4 % (0.0-10.0); %Neutrophils 58.4 % (42.0-75.0); Hemoglobin 11.8 g/dL (12.0-16.0); Mean Corpuscular HGB CONC 33.8 g/dL (32.0-36.0); Mean Corpuscular Hemoglobin 31.2 pg (27.0-31.0); Mean Corpuscular Volume 92.4 fL (78.0-98.0); Mean Platelet Volume 8.7 fL (7.4-10.4); Platelet Count 215 thou/uL (130-400); RBC Distribution Width 12.8 % (11.5-14.5); Red Blood Cell (RBC) Count 3.77 mill/uL (4.20-5.40); White Blood Cell (WBC) Count 6.1 thou/uL (4.8-10.8)
[2020-07-26 06:33] LABS: Anion Gap 14 mmol/L (10-20); BUN (Urea Nitrogen) 7 mg/dL (9.8-20.1); Calc. Creatinine Clearance 125 mL/min (70-130); Calcium 9.3 mg/dL (7.8-10.44); Carbon Dioxide 28 mmol/L (22-29); Chloride 104 mmol/L (98-107); Estimated GFR-MDRD Greater than 90; Glucose 127 mg/dL (70-105); Potassium 3.8 mmol/L (3.5-5.1); Sodium 142 mmol/L (136-145)
[2020-07-26 07:37] VITALS: TEMP 98.6
[2020-07-26] MEDS: Calcium Carbonate 600 MG TAB PO SCH (09:28)
[2020-07-26] MEDS: Multivit, Therapeutic 1 TAB PO SCH (09:28)
[2020-07-26] MEDS: traMADol HCl 50 MG TAB PO SCH (09:28)
[2020-07-26] MEDS: Lisinopril 10 MG TAB PO SCH (09:30)
[2020-07-26] MEDS: Enoxaparin Sodium 40 MG/0.4 ML SYRINGE SC SCH (09:31)
[2020-07-26] MEDS: Acetaminophen 325 MG TAB PO SCH (09:31)
[2020-07-26 09:32] VITALS: BP 131/85
--- NOTE | 2020-07-26 12:30 | DIS ---
DATE OF ADMISSION: 07/23/2020 DATE OF DISCHARGE: 07/26/2020 DISCHARGE DIAGNOSES: 1. Sepsis. 2. Left lower lobe pneumonia. 3. Hypertension. 4. Syncope. 5. Mild mitral regurgitation with dilated left atrium. BRIEF HOSPITAL COURSE: This is a 49-year-old female, who presented to the ED on account of a syncopal event, general weakness, and intermittent cough and fevers. A chest x-ray noted to have left lower lobe pneumonia, infiltrates, and diagnosed with pneumonia. She was started on azithromycin and ceftriaxone. [employer] her history of syncope, she also had an echocardiogram, which showed mildly dilated left atrium with mild mitral regurgitation, otherwise no other significant events. She significantly improved with no fevers and no incidents of syncope while on admission. She was discharged to complete antibiotics on outpatient basis. She is to follow up with her PCP and to have a repeat chest x-ray in about 6 to 8 weeks. She would also have ongoing reevaluation of her abnormal echocardiogram with decisions for further assessment will leave to her PCP. DISCHARGE PHYSICAL EXAMINATION: GENERAL: The patient is in bed, in no acute distress. CARDIOVASCULAR SYSTEM: S1 and S2 present. No murmurs, gallops, or rubs. RESPIRATORY SYSTEM: Air entry adequate bilaterally. No rhonchi or rales heard. ABDOMEN: Benign. EXTREMITIES: No edema. CONSULTATIONS: None. DISPOSITION: Home. Job ID: [id number]
== END 2020-07-26 11:11 | disposition home or self-care (01) | DRG 871 ==
LOC: ERS 13:06 → ERHOLD 14:53 → T4-B 22:37
PROVIDERS: ADMIT Internal Medicine; ATTEND Internal Medicine
DX: A41.9 Sepsis, unspecified organism (principal); J18.9 Pneumonia, unspecified organism; N39.0 Urinary tract infection, site not specified; I10 Essential (primary) hypertension; Z79.899 Other long term (current) drug therapy; R55 Syncope and collapse; I34.0 Nonrheumatic mitral (valve) insufficiency; Z20.828 Contact with and (suspected) exposure to other viral communicable diseases
CPT/HCPCS: 36415; 70450; 71045; 80048; 80053; 81003; 81015; 81025; 83605; 85025; 87040; 87077; 87086; 87635; 87804; 93005; 93306; 94760; 96365; 96367; 96375; J0456; J0696; J1200; J1885; J2405; J2765; J3490; J7050; Q0163; U0002; U0003

== ENCOUNTER 2020-09-01 14:35 | Outpatient (CLI) | payer BC ==
--- NOTE | 2020-09-01 15:23 | RAD ---
CHEST 2 VIWS: HISTORY: Pneumonia. COMPARISON: 07/21/2020. FINDINGS: Heart size is normal. The lungs are clear. IMPRESSION: No significant acute intrathoracic disease. POS: RRE
== END 2020-09-01 14:36 | disposition home or self-care (01) ==
LOC: BICRAD 14:35
PROVIDERS: ATTEND Internal Medicine
DX: J18.9 Pneumonia, unspecified organism (principal); R73.01 Impaired fasting glucose
CPT/HCPCS: 36415; 71046; 80053; 83036; 85025

== ENCOUNTER 2021-11-10 14:14 | Outpatient (CLI) | payer BC | END 2021-11-10 14:15 | disposition home or self-care (01) | LOC: BICMAMMO 14:14 | PROVIDERS: ATTEND Internal Medicine | DX: Z12.31 Encounter for screening mammogram for malignant neoplasm of breast (principal) | CPT/HCPCS: 77063; 77067 ==

== ENCOUNTER 2021-12-03 12:03 | Outpatient (CLI) | payer BC | END 2021-12-03 12:04 | disposition home or self-care (01) | LOC: CT 12:03 | PROVIDERS: ATTEND Student in an Organized Health Care Education/Training Program | DX: H93.A1 Pulsatile tinnitus, right ear (principal) | CPT/HCPCS: 70496 ==

== ENCOUNTER 2022-11-11 13:44 | Outpatient (CLI) | payer BC | END 2022-11-11 13:45 | disposition home or self-care (01) | LOC: BICMAMMO 13:44 | PROVIDERS: ATTEND Obstetrics & Gynecology | DX: Z12.31 Encounter for screening mammogram for malignant neoplasm of breast (principal) | CPT/HCPCS: 77063; 77067 ==

== ENCOUNTER 2022-11-16 14:03 | Outpatient (CLI) | payer BC | END 2022-11-16 14:04 | disposition home or self-care (01) | LOC: MRI 14:03 | PROVIDERS: ATTEND Orthopaedic Surgery | DX: M75.101 Unspecified rotator cuff tear or rupture of right shoulder, not specified as traumatic (principal); M19.011 Primary osteoarthritis, right shoulder; S43.084A Other dislocation of right shoulder joint, initial encounter; S46.811A Strain of other muscles, fascia and tendons at shoulder and upper arm level, right arm, initial encounter ==

== ENCOUNTER 2024-04-16 14:48 | Outpatient (CLI) | payer BC | END 2024-04-16 14:49 | disposition home or self-care (01) | LOC: BICMAMMO 14:48 | PROVIDERS: ATTEND Internal Medicine | DX: Z12.31 Encounter for screening mammogram for malignant neoplasm of breast (principal) | CPT/HCPCS: 77063; 77067 ==

== ENCOUNTER 2024-07-16 08:36 | Outpatient (CLI) | payer BC | END 2024-07-16 08:37 | disposition home or self-care (01) | LOC: BICRAD 08:36 | PROVIDERS: ATTEND Internal Medicine | DX: M47.26 Other spondylosis with radiculopathy, lumbar region (principal) | CPT/HCPCS: 72100 ==